=== PATIENT | female | born 1940 | race Caucasian/White ===

== ENCOUNTER 2017-11-16 11:04 | Inpatient (IN) | payer MEDICARE, OTHER ==
[~2017-11-16] VITALS: Ht 157.5 cm; Wt 82.3 kg
[2017-11-16 12:10] LABS: BASOPHILS # (AUTO) 0.04 x10^3/uL (0-0.1); BASOPHILS % (AUTO) 1 % (0-1); EOSINOPHILS # (AUTO) 0.08 x10^3/uL (0-0.4); EOSINOPHILS % (AUTO) 1 % (1-7); LYMPHOCYTES # (AUTO) 2.15 x10^3/uL (1-3.4); LYMPHOCYTES % (AUTO) 29 % (22-44); MD NO; MEAN CORPUSCULAR HEMOGLOBIN 32.4 pg (27.0-34.8); MEAN CORPUSCULAR HGB CONC 33.6 g/dL (32.4-35.8); MEAN CORPUSCULAR VOLUME 96.5 fL (80-100); MONOCYTES # (AUTO) 0.38 x10^3/uL (0.2-0.8); MONOCYTES % (AUTO) 5 % (2-9); NEUTROPHILS # (AUTO) 4.68 x10^3/uL (1.8-6.8); NEUTROPHILS % (AUTO) 64 % (42-75); PLATELET COUNT 340 x10^3/uL (130-400); RED BLOOD COUNT 4.51 x10^6/uL (3.82-5.3); RED CELL DISTRIBUTION WIDTH 14.2 % (9.6-15.2)
[2017-11-16 12:23] LABS: ALBUMIN 4.1 g/dL (3.4-5.0); ANION GAP 6 mmol/L (5-15); CALCIUM 10.2 mg/dL (8.5-10.1); CHLORIDE 104 mmol/L (98-107); CREATININE 0.73 mg/dL (0.55-1.02)
[2017-11-16 12:26] LABS: TROPONIN I < 0.015 ng/mL (0.000-0.045)
[2017-11-16] MEDS ORDERED: DILTIAZEM 5 MG/ML, 5ML ONE (13:10)
[2017-11-16] MEDS ORDERED: MULT-6 PO (13:27)
[2017-11-16] MEDS ORDERED: SODIUM CHLORIDE FLUSH 10ML SYR IVF PRN (13:30)
[2017-11-16] MEDS ORDERED: DILTIAZEM 5 MG/ML, 5ML IV ONE (13:30)
[2017-11-16] MEDS ORDERED: LABETALOL 5MG/ML, 20ML IVPush PRN (14:00)
[2017-11-16 14:19] LABS: FREE T4 (FREE THYROXINE) 0.96 ng/dL (0.76-1.46); THYROID STIMULATING HORMONE 2.09 mIU/L (0.358-3.740)
[2017-11-16 15:11] VITALS: BP 142/91
[2017-11-16 15:12] LABS: TROPONIN I < 0.015 ng/mL (0.000-0.045)
[2017-11-16] MEDS ORDERED: calcium PO (15:17)
[2017-11-16] MEDS ORDERED: FLAX1000 PO (15:17)
[2017-11-16] MEDS ORDERED: ASCO500C10 PO (15:17)
[2017-11-16] MEDS ORDERED: OMEG-170 PO (15:17)
[2017-11-16] MEDS ORDERED: zinc PO (15:17)
[2017-11-16 15:18] LABS: HEMOGLOBIN A1C 6.9 % (4.2-6.3)
[2017-11-16] MEDS ORDERED: PROP1DRO6 EACHEYE (15:48)
[2017-11-16] MEDS: ENOXAPARIN 40 MG/0.4 ML SQ SCH (16:55)
[2017-11-16] MEDS: SODIUM CHLORIDE 0.9% 1,000 ML IV SCH (16:55)
[2017-11-16 18:51] VITALS: BP 135/80
[2017-11-16] MEDS ORDERED: METOPROLOL TARTRATE 50 MG TABLET PO ONE (21:00)
[2017-11-16 21:47] LABS: TROPONIN I < 0.015 ng/mL (0.000-0.045)
[2017-11-17 00:04] VITALS: BP 108/65
[2017-11-17] MEDS: ASPIRIN 325 MG TABLET EC PO SCH (05:27)
[2017-11-17 05:41] LABS: BASOPHILS # (AUTO) 0.06 x10^3/uL (0-0.1); BASOPHILS % (AUTO) 1 % (0-1); EOSINOPHILS # (AUTO) 0.18 x10^3/uL (0-0.4); EOSINOPHILS % (AUTO) 3 % (1-7); LYMPHOCYTES # (AUTO) 3.25 x10^3/uL (1-3.4); LYMPHOCYTES % (AUTO) 45 % (22-44); MD NO; MEAN CORPUSCULAR HEMOGLOBIN 32.7 pg (27.0-34.8); MEAN CORPUSCULAR HGB CONC 33.7 g/dL (32.4-35.8); MEAN CORPUSCULAR VOLUME 96.9 fL (80-100); MEAN PLATELET VOLUME 7.8 fL (7.4-10.4); MONOCYTES # (AUTO) 0.42 x10^3/uL (0.2-0.8); MONOCYTES % (AUTO) 6 % (2-9); NEUTROPHILS # (AUTO) 3.28 x10^3/uL (1.8-6.8); NEUTROPHILS % (AUTO) 46 % (42-75); PLATELET COUNT 287 x10^3/uL (130-400); RED BLOOD COUNT 4.04 x10^6/uL (3.82-5.3)
[2017-11-17 05:58] LABS: ALBUMIN 3.5 g/dL (3.4-5.0); ANION GAP 4 mmol/L (5-15); CALCIUM 9.3 mg/dL (8.5-10.1); CHLORIDE 107 mmol/L (98-107)
[2017-11-17 06:03] LABS: ALANINE AMINOTRANSFERASE 31 U/L (12-78); ALKALINE PHOSPHATASE 103 U/L (45-117); BILIRUBIN,TOTAL 0.7 mg/dL (0.2-1.0); CREATININE 0.79 mg/dL (0.55-1.02); TOTAL PROTEIN 7.4 g/dL (6.4-8.2)
[2017-11-17 07:17] VITALS: BP 138/84
[2017-11-17] MEDS: SODIUM CHLORIDE 0.9% 1,000 ML IV SCH ×2 (07:34→23:26)
[2017-11-17 12:02] VITALS: BP 127/88
[2017-11-17] MEDS: ENOXAPARIN 40 MG/0.4 ML SQ SCH (15:42)
[2017-11-17] MEDS: METOPROLOL TARTRATE 100 MG TABLET PO SCH (18:13)
[2017-11-17 20:45] VITALS: BP 117/74
[2017-11-18 00:14] VITALS: BP 128/86
[2017-11-18] MEDS: METOPROLOL TARTRATE 100 MG TABLET PO SCH (06:25)
[2017-11-18] MEDS: ASPIRIN 325 MG TABLET EC PO SCH (06:25)
[2017-11-18 06:37] VITALS: BP 141/94
[2017-11-18 07:35] VITALS: BP 126/79
[2017-11-18] MEDS ORDERED: APIX5TAB PO (10:21)
[2017-11-18] MEDS ORDERED: METO-99 PO (10:21)
[2017-11-18] MEDS ORDERED: APIXABAN 5 MG TABLET PO SCH (21:00)
== END 2017-11-18 12:35 | disposition home or self-care (01) | DRG 309 ==
LOC: ED 13:27 → EDIP 13:28 → ED 13:55 → 5SO 15:00 → DCLOUNGE 11-18 12:14
PROVIDERS: ADMIT Internal Medicine; ATTEND Internal Medicine
DX: I48.91 Unspecified atrial fibrillation (principal); D68.69 Other thrombophilia; E11.65 Type 2 diabetes mellitus with hyperglycemia; E83.52 Hypercalcemia; I10 Essential (primary) hypertension; I27.20 Pulmonary hypertension, unspecified; Z79.82 Long term (current) use of aspirin; Z79.899 Other long term (current) drug therapy
CPT/HCPCS: 36415; 71045; 80048; 80053; 82040; 82330; 83036; 83735; 84439; 84443; 84484; 85025; 93005; 93306; 96374; J1650; J7030